=== PATIENT | female | born 1975 | race Two or more races ===

== ENCOUNTER 2025-03-01 10:45 | Inpatient (IN) | payer OTHER ==
[~2025-03-01] VITALS: Ht 152.4 cm; Wt 74.8 kg
[2025-03-01 13:00] LABS: COVID-19 AG NEGATIVE (NEGATIVE)
[2025-03-01 14:29] VITALS: BP 105/65
[2025-03-01 14:33] VITALS: BP 113/76
[2025-03-01 15:33] LABS: RH POSITIVE
[2025-03-03] MEDS ORDERED: CEFAZOLIN SODIUM 1,000 MG VIAL IV ONE (17:00)
[2025-03-03] MEDS ORDERED: METRONIDAZOLE/SODIUM CHLORIDE 500 MG/100 ML PIGGYBACK IV ONE (17:00)
[2025-03-03] MEDS ORDERED: SUGAMMADEX SODIUM 200 MG/2 ML VIAL IV ONE (17:00)
[2025-03-03] MEDS ORDERED: POVIDONE-IODINE 118 ML BOTT TOP ONE (17:00)
[2025-03-03] MEDS ORDERED: OxyCODONE HCL 5 MG TABLET (ROXICODONE) PO PRN (17:45)
[2025-03-03] MEDS ORDERED: MORPHINE SULFATE 4 MG/ML CARTRIDGE IV PRN (17:45)
[2025-03-03] MEDS ORDERED: RINGERS SOLUTION,LACTATED 1,000 ML IV SCH (17:45)
[2025-03-03] MEDS ORDERED: ONDANSETRON HCL 2 MG/ML VIAL IV PRN (17:45)
[2025-03-03] MEDS ORDERED: MORPHINE SULFATE 4 MG/ML VIAL IV ONE ×2 (18:55→20:10)
[2025-03-03 20:33] LABS: BASO % 0.2 % (0.1-1.2); EOS # 0.00 (0.04-0.54); EOS % 0.0 % (0.7-7.0); LYMPH # 1.45 (1.18-3.74); LYMPH % 9.9 % (19.3-53.1); MEAN PLATELET VOLUME 9.90 fl (9.4-12.4); MONO # 0.98 (0.24-0.82); MONO % 6.7 % (4.7-12.5); NEUT # 12.09 (1.56-6.13); NEUT % 82.9 % (34.0-71.1); RED CELL DISTRIBUTION WIDTH 12.4 % (11.6-14.4)
[2025-03-03 20:55] LABS: BUN CREA RATIO 11.0 (7.0-25.0); CREATININE SERUM 0.61 mg/dL (0.55-1.02); GFR 103.82; GLUCOSE FASTING 143.0 mg/dL (65-100); OSMOLALITY SERUM 282.0 MOSM/KG (275-295)
[2025-03-03] MEDS ORDERED: FAMOTIDINE/PF 20 MG/2 ML VIAL IV PUSH SCH (21:00)
[2025-03-03 21:11] VITALS: BP 105/65
[2025-03-04] MEDS ORDERED: GABAPENTIN 300 MG CAPSULE PO SCH (01:00)
[2025-03-04] MEDS ORDERED: CEFAZOLIN SODIUM 1,000 MG VIAL IV SCH (01:00)
[2025-03-04 01:44] VITALS: BP 104/62; O2SAT 98
[2025-03-04 06:46] LABS: BASO % 0.2 % (0.1-1.2); EOS # 0.01 (0.04-0.54); EOS % 0.1 % (0.7-7.0); LYMPH # 1.55 (1.18-3.74); LYMPH % 17.0 % (19.3-53.1); MEAN PLATELET VOLUME 10.50 fl (9.4-12.4); MONO # 1.04 (0.24-0.82); MONO % 11.4 % (4.7-12.5); NEUT # 6.45 (1.56-6.13); NEUT % 71.0 % (34.0-71.1); RED CELL DISTRIBUTION WIDTH 12.6 % (11.6-14.4)
[2025-03-04 07:40] LABS: BUN CREA RATIO 10.0 (7.0-25.0); CREATININE SERUM 0.52 mg/dL (0.55-1.02); GFR 124.82; GLUCOSE FASTING 99.0 mg/dL (65-100); OSMOLALITY SERUM 282.0 MOSM/KG (275-295)
[2025-03-04 08:00] VITALS: BP 116/71; O2SAT 99
[2025-03-04] MEDS ORDERED: ACETAMINOPHEN 500 MG GEL..CAP PO SCH (08:00)
[2025-03-04] MEDS ORDERED: DOCUSATE SODIUM 100MG CAP PO SCH (09:00)
[2025-03-04] MEDS ORDERED: ENOXAPARIN SODIUM 40 MG/0.4 ML SYRINGE SUBCUTANEO SCH (09:00)
[2025-03-04] MEDS ORDERED: METOCLOPRAMIDE HCL 5 MG/ML VIAL IV SCH (09:00)
[2025-03-04] MEDS ORDERED: SIMETHICONE 125 MG CAPSULE PO SCH (09:00)
[2025-03-04 13:03] VITALS: BP 102/65
== END 2025-03-04 13:34 | disposition home or self-care (01) | DRG 743 ==
LOC: SURH 03-03 10:45 → O/R 03-03 12:01 → SURH 03-03 17:45 → OB/GYN 03-03 18:32
PROVIDERS: ADMIT Obstetrics & Gynecology Gynecologic Oncology; ATTEND Obstetrics & Gynecology Gynecologic Oncology
PROC: 0UT74ZZ Resection of Bilateral Fallopian Tubes, Percutaneous Endoscopic Approach (ICD-10-PCS; 2025-03-03)
PROC: 0UT24ZZ Resection of Bilateral Ovaries, Percutaneous Endoscopic Approach (ICD-10-PCS; 2025-03-03)
PROC: 07BC4ZZ Excision of Pelvis Lymphatic, Percutaneous Endoscopic Approach (ICD-10-PCS; 2025-03-03)
PROC: 8E0W4CZ Robotic Assisted Procedure of Trunk Region, Percutaneous Endoscopic Approach (ICD-10-PCS; 2025-03-03)
PROC: 0UT94ZZ Resection of Uterus, Percutaneous Endoscopic Approach (ICD-10-PCS; principal; 2025-03-03 17:45)
DX: D25.9 Leiomyoma of uterus, unspecified (principal); N80.03 Adenomyosis of the uterus; D36.0 Benign neoplasm of lymph nodes; N84.0 Polyp of corpus uteri
CPT/HCPCS: 58548; S2900